=== PATIENT | female | born 1950 | race Caucasian/White ===

== ENCOUNTER 2018-07-08 09:23 | Day surgery (SDC) | payer BC, MEDICARE ==
[2018-07-06 09:34] VITALS: BMI 31.6
[2018-07-08 09:45] VITALS: RESP 16
[2018-07-08] MEDS ORDERED: ONDANSETRON 4 MG/2 ML VIAL IVP ONE (09:49)
[2018-07-08] MEDS ORDERED: LACTATED RINGERS 1,000 ML IV ONE (09:50)
[2018-07-08] MEDS ORDERED: LIDOCAINE 1% INJ 10MG/ML (20 ML MDV) ONE (11:29)
[2018-07-08] MEDS ORDERED: MIDAZOLAM 2 MG/2 ML VIAL ONE (11:29)
[2018-07-08] MEDS ORDERED: PROPOFOL 10 MG/ML 20 ML VIAL IV ONE (11:29)
--- NOTE | 2018-07-08 11:36 | P.GSHP ---
History of Present Illness H&P Date: 07/08/18 CHIEF COMPLAINT: Colon screen HISTORY OF PRESENT ILLNESS: The patient is a 68-year-old female who presents for colon screen. Lower endoscopy was offered for further evaluation and management. PAST MEDICAL HISTORY: Please see list. PAST SURGICAL HISTORY: Please see list. MEDICATIONS: Please see list. ALLERGIES: Please see list. SOCIAL HISTORY: No illicit drug use FAMILY HISTORY: No reports of Crohn disease or ulcerative colitis. REVIEW OF ORGAN SYSTEMS: CONSTITUTIONAL: No reports of fevers or chills. PHYSICAL EXAM: VITAL SIGNS: Stable GENERAL: Well-developed pleasant in no acute distress. HEENT: No scleral icterus. Extraocular movements grossly intact. Moist buccal mucosa. NECK: Supple without lymphadenopathy. CHEST: Unlabored respirations. Equal bilateral excursions. CARDIOVASCULAR: Regular rate and rhythm. Distal 2+ pulses. ABDOMEN: Soft, nontender, nondistended. MUSCULOSKELETAL: No clubbing, cyanosis, or edema. ASSESSMENT: 1. Colon screen. PLAN: 1. Recommend proceeding with a lower endoscopy Past Medical History Past Medical History: Hyperlipidemia, Hypertension, Thyroid Disorder Additional Past Medical History / Comment(s): IBS; Hemorrhoids; History of Any Multi-Drug Resistant Organisms: None Reported Past Surgical History: Adenoidectomy, Hysterectomy, Tonsillectomy Additional Past Surgical History / Comment(s): Colonoscopy Past Anesthesia/Blood Transfusion Reactions: Postoperative Nausea & Vomiting ( PONV) Past Psychological History: Anxiety Smoking Status: Never smoker Past Alcohol Use History: Occasional Past Drug Use History: None Reported - Past Family History Mother Family Medical History: No Reported History Medications and Allergies Home Medications Medication Instructions Recorded Confirmed Type ALPRAZolam [Xanax] 0.5 mg PO DAILY PRN 07/06/18 07/08/18 History Atenolol 25 mg PO BID 07/06/18 07/08/18 History Levothyroxine Sodium [Synthroid] 50 mcg PO DAILY 07/06/18 07/08/18 History Lisinopril [Zestril] 10 mg PO DAILY 07/06/18 07/08/18 History Pravastatin Sodium [Pravachol] 10 mg PO HS 07/06/18 07/08/18 History Timolol 0.5% Ophth Soln [Timoptic 1 drop BOTH EYES DAILY 07/06/18 07/08/18 History 0.5% Ophth Soln] Allergies Allergy/AdvReac Type Severity Reaction Status Date / Time No Known Allergies Allergy Verified 07/08/18 09:45 Surgical - Exam Vital Signs Temp Pulse Resp BP Pulse Ox 97.9 F 80 16 198/95 98 07/08/18 09:43 07/08/18 09:43 07/08/18 09:43 07/08/18 09:43 07/08/18 09:43
--- NOTE | 2018-07-08 11:57 | P.PCN ---
Date of Procedure: 07/08/18 Description of Procedure: PREOPERATIVE DIAGNOSIS: Colonoscopy screening. POSTOPERATIVE DIAGNOSIS: Colonoscopy screening. Intermittent sigmoid volvulus Internal and external, grade 4 hemorrhoids with complication OPERATION: Colonoscopy to the ascending colon SURGEON: Dena Schneider MD. ANESTHESIA: MAC. INDICATIONS: The patient is a 68-year-old female who presents for her first colonoscopy screening. Benefits and risks were described and informed consent was obtained. DESCRIPTION OF PROCEDURE: The patient had undergone Gatorade, MiraLAX and Dulcolax prep. She had been brought into the operating room and laid in the left lateral decubitus position. After adequate intravenous sedation, the rectum was examined with 2% lidocaine jelly. External hemorrhoids were encountered. The rectal tone was within normal limits. No lesions were palpated in the rectal vault. An Olympus colonoscope was advanced to the hepatic flexure. The prep was excellent with clear visualization of the mucosal folds. The scope was removed with visualization of each mucosal fold. No scattered diverticulosis was encountered. No colonic polyps were found. Evidence of focal colitis was found along the sigmoid colon and descending colon highly suggestive of intermittent sigmoid volvulus. Retroflexion of the scope demonstrated grade 4 internal hemorrhoids without active bleeding or inflammation. The colon was desufflated. The patient had tolerated the procedure well. Withdrawal time was over 6 minutes. FINDINGS: Internal hemorrhoids, grade 4 External prolapsed hemorrhoids, grade 4 No arteriovenous malformations. No adenomatous polyps. Evidence of focal colitis was found along the sigmoid colon and descending colon highly suggestive of intermittent sigmoid volvulus. RECOMMENDATIONS: 1. Will need barium enema to evaluate ascending colon and redundancy of sigmoid colon for risk of sigmoid volvulus 2. Repeat colonoscopy in 10 years, 2027 pending barium enema results Plan - Discharge Summary New Discharge Prescriptions: No Action Pravastatin Sodium [Pravachol] 10 mg PO HS Lisinopril [Zestril] 10 mg PO DAILY Levothyroxine Sodium [Synthroid] 50 mcg PO DAILY Timolol 0.5% Ophth Soln [Timoptic 0.5% Ophth Soln] 1 drop BOTH EYES DAILY Atenolol 25 mg PO BID ALPRAZolam [Xanax] 0.5 mg PO DAILY PRN PRN Reason: Anxiety Discharge Medication List ALPRAZolam [Xanax] 0.5 mg PO DAILY PRN 07/06/18 [History] Atenolol 25 mg PO BID 07/06/18 [History] Levothyroxine Sodium [Synthroid] 50 mcg PO DAILY 07/06/18 [History] Lisinopril [Zestril] 10 mg PO DAILY 07/06/18 [History] Pravastatin Sodium [Pravachol] 10 mg PO HS 07/06/18 [History] Timolol 0.5% Ophth Soln [Timoptic 0.5% Ophth Soln] 1 drop BOTH EYES DAILY [History] Follow up Appointment(s)/Referral(s): Dena Schneider MD [STAFF PHYSICIAN] - 07/19/18 Patient Instructions/Handouts: Hemorrhoids (DC), *Surgery [facility] - (Anesthesia) Endoscopy Discharge Instructions Discharge Disposition: HOME SELF-CARE
[2018-07-08 13:21] VITALS: BP 167/78; PULSE 57; TEMP 97.2
--- NOTE | 2018-07-08 14:41 | XR ---
EXAMINATION TYPE: XR KUB DATE OF EXAM: 07/08/2018 COMPARISON: NONE HISTORY: INCOMPLETE COLONOSCOPY TECHNIQUE: Single supine KUB image of the abdomen is obtained FINDINGS: Small bowel demonstrates no evidence for dilatation or air fluid levels. Gas and fecal material is seen in non-distended colon. No convincing evidence for pneumoperitoneum. No unusual calcifications. The lung bases are clear. The osseous structures are intact. IMPRESSION: 1. Given Extensive air within the transverse colon and right hemicolon barium enema could not be perf ormed at this time.
== END 2018-07-08 13:32 | disposition home or self-care (01) ==
LOC: ORWHC2ENDO 09:23
PROVIDERS: ATTEND Surgery Plastic and Reconstructive Surgery
DX: Z12.11 Encounter for screening for malignant neoplasm of colon (principal); I10 Essential (primary) hypertension; E78.5 Hyperlipidemia, unspecified; E07.9 Disorder of thyroid, unspecified; F41.9 Anxiety disorder, unspecified; K64.3 Fourth degree hemorrhoids; K64.4 Residual hemorrhoidal skin tags; K56.2 Volvulus; Z79.899 Other long term (current) drug therapy; K52.9 Noninfective gastroenteritis and colitis, unspecified; Z79.890 Hormone replacement therapy; F32.9 Major depressive disorder, single episode, unspecified
CPT/HCPCS: 74018; J2250; J2405; J2001; J2704; G0121

== ENCOUNTER → 2018-07-19 | Outpatient (CLI) | payer MEDICARE ==
--- NOTE | 2018-07-19 11:46 | FL ---
EXAMINATION TYPE: FL barium enema DATE OF EXAM: 07/19/2018 COMPARISON: Abdominal x-ray July 08, 2018. HISTORY: Incomplete colonoscopy TECHNIQUE: A double contrast barium enema study is performed. A total of 2 minutes 28 seconds of flu oroscopic time was utilized during procedure. 24 images are saved to PACS. FINDINGS: Inspector Raw Quartz view of the abdomen shows overall non-obstructive bowel gas pattern. Dextroconvex sc oliotic curvature centered in the mid lumbar spine is redemonstrated. There is successful filling of colon to the cecum. There is redundancy of the sigmoid as well as the transverse colon noted. No evidence of any mass or polyp, obstructing or constricting lesion througho ut the colon. Slightly suboptimal evaluation due to some mottled intracolonic fecal debris. No signif icant diverticular disease is noted. The appendix and terminal ileum were not refluxed. IMPRESSION: Successful filling to cecum without constricting mass or neoplasm.
== END ==
LOC: RADFLMAIN 08:45
PROVIDERS: ATTEND Surgery Plastic and Reconstructive Surgery
DX: K56.2 Volvulus (principal)
CPT/HCPCS: 74270

== ENCOUNTER → 2018-11-11 | Outpatient (CLI) | payer MEDICARE ==
[2018-11-11 13:34] LABS: HCT 48.3 % (34.0-46.0); HGB 15.7 gm/dL (11.4-16.0); MCH 30.6 pg (25.0-35.0); MCHC 32.5 g/dL (31.0-37.0); MCV 94.2 fL (80.0-100.0); Platelet Count 320 k/uL (150-450); RBC 5.12 m/uL (3.80-5.40); RDW 12.5 % (11.5-15.5); WBC 4.8 k/uL (3.8-10.6)
[2018-11-11 13:42] LABS: Albumin 4.2 g/dL (3.5-5.0); Calcium 9.9 mg/dL (8.4-10.2); Potassium 4.6 mmol/L (3.5-5.1); Total Bilirubin 0.6 mg/dL (0.2-1.3); Total Protein 6.9 g/dL (6.3-8.2)
== END | disposition home or self-care (01) ==
LOC: LABPAT 12:39
PROVIDERS: ATTEND Surgery Plastic and Reconstructive Surgery
DX: Z01.812 Encounter for preprocedural laboratory examination (principal)
CPT/HCPCS: 80053; 85027

== ENCOUNTER → 2018-12-06 | Outpatient (CLI) | payer MEDICARE ==
--- NOTE | 2018-12-06 22:01 | CT ---
EXAMINATION TYPE: CT abdomen pelvis w con DATE OF EXAM: 12/06/2018 HISTORY: abdominal pain X 2 years, sigmoid volvulus per order. CT DLP: 2645.8mGycm Automated Exposure Control for Dose Reduction was Utilized. CONTRAST: CT scan of the abdomen and pelvis is performed with IV Contrast, patient injected with 100 mL of Isov ue 300. COMPARISON: None. FINDINGS: LUNG BASES: No significant abnormality is appreciated. LIVER/GB: No significant abnormality is appreciated. PANCREAS: No significant abnormality is seen. SPLEEN: No significant abnormality is seen. ADRENALS: No significant abnormality is seen. KIDNEYS: There are symmetric cortical medullary uptake and excretion from both kidneys without hydron ephrosis bilaterally. Central parapelvic cysts are present in both kidneys.. BOWEL: Small hiatal hernia is present. Oral contrast reaches level of cecum. There is no suspicious s mall or large bowel dilatation. UTERUS/ADNEXA: Uterus is surgically absent or markedly atrophic LYMPH NODES: No greater than 1cm abdominal or pelvic lymph nodes are appreciated. OSSEOUS STRUCTURES: Dextroconvex scoliosis centered at L2 level is seen. There is advanced disc space narrowing with endplate sclerosis L2-L3 level. There is moderate to advanced disc space narrowing L4 -L5 level. There is moderate disc space narrowing L1-L2 level. There is multilevel facet arthropathy in the lower lumbar spine. OTHER: There is moderate-sized fat-containing right inguinal hernia and small fat-containing left in guinal hernia IMPRESSION: No significant acute finding is seen to account for patient's clinical symptoms of abdomi nal pain. No bowel obstruction or evidence of sigmoid volvulus.
== END | disposition home or self-care (01) ==
LOC: RADCTMAIN 14:58
PROVIDERS: ATTEND Surgery Plastic and Reconstructive Surgery
DX: K56.2 Volvulus (principal); Z88.8 Allergy status to other drugs, medicaments and biological substances
CPT/HCPCS: 82565; 84520; 74177; 36415; Q9967

== ENCOUNTER → 2018-12-27 | Outpatient (CLI) | payer MEDICARE ==
[2018-12-27 13:49] LABS: HCT 48.1 % (34.0-46.0); HGB 15.9 gm/dL (11.4-16.0); MCH 30.6 pg (25.0-35.0); MCHC 33.1 g/dL (31.0-37.0); MCV 92.6 fL (80.0-100.0); Mean Platelet Volume 7.8; Platelet Count 296 k/uL (150-450); RBC 5.19 m/uL (3.80-5.40); RDW 13.5 % (11.5-15.5); WBC 7.1 k/uL (3.8-10.6)
[2018-12-27 14:02] LABS: ALT 40 U/L (9-52); AST 35 U/L (14-36); Albumin 4.7 g/dL (3.5-5.0); Alkaline Phosphatase 75 U/L (38-126); Anion Gap 12 mmol/L; Blood Urea Nitrogen 36 mg/dL (7-17); Carbon Dioxide 22 mmol/L (22-30); Chloride 106 mmol/L (98-107); Glucose 99 mg/dL (74-99); Potassium 4.3 mmol/L (3.5-5.1); Sodium 140 mmol/L (137-145); Total Bilirubin 0.8 mg/dL (0.2-1.3); Total Protein 7.4 g/dL (6.3-8.2)
== END | disposition home or self-care (01) ==
LOC: LABWHC1 13:16
PROVIDERS: ATTEND Surgery Plastic and Reconstructive Surgery
DX: Z01.812 Encounter for preprocedural laboratory examination (principal)
CPT/HCPCS: 36415; 80053; 85027

== ENCOUNTER 2019-01-19 07:30 | Inpatient (IN) | payer MEDICARE ==
[~2019-01-19 07:30] MED LIST: LIDOCAINE 1% 20 ML VIAL (10MG/ML) FOR IV START INTRADERMA PRN
[2019-01-19] MEDS ORDERED: MIDAZOLAM 2 MG/2 ML VIAL ONE (10:10)
[2019-01-19] MEDS ORDERED: fentaNYL (PF) 50 MCG/ML 2 ML AMP ONE (10:10)
[2019-01-19] MEDS ORDERED: PROPOFOL 10 MG/ML 20 ML VIAL IV ONE (10:10)
[2019-01-19] MEDS: LACTATED RINGERS 1,000 ML IV SCH ×2 (12:07→14:30)
--- NOTE | 2019-01-19 12:27 | P.GSHP ---
History of Present Illness H&P Date: 01/19/19 CHIEF COMPLAINT: History of recurrent sigmoid volvulus HISTORY OF PRESENT ILLNESS: The patient is a 68-year-old female with long- standing history of chronic constipation including large bowel obstruction secondary to sigmoid volvulus. She has not completed a colonoscopy to exclude underlying neoplasm. Now she presents for completion colonoscopy and colon resection. PAST MEDICAL HISTORY: Please see list. PAST SURGICAL HISTORY: Please see list. MEDICATIONS: Please see list. ALLERGIES: Please see list. SOCIAL HISTORY: No illicit drug use FAMILY HISTORY: No reports of Crohn disease or ulcerative colitis. REVIEW OF ORGAN SYSTEMS: CONSTITUTIONAL: Denies any fever or chills. HEENT: Denies any trouble with nosebleeds. No difficulty swallowing. Has glaucoma. LYMPHATIC: The patient denies any lumps and bumps around the neck. ENDOCRINE: Has thyroid disorders. No blood sugar glucose intolerance. RESPIRATORY: Past history of bronchitis. Denies any troubles with breathing or dyspnea on exertion. CARDIOVASCULAR: Has past palpitations. No recent heart attacks. She saw her punch operator within the last 6 months. History of supraventricular tachycardia. GASTROINTESTINAL: Has chronic constipation including intermittent sigmoid volvulus with hemorrhoids and rectal bleeding. Has gastroesophageal reflux disease. Past history of C. diff colitis. Has postop nausea and vomiting. GENITOURINARY: Has increased urinary frequency. MUSCULOSKELETAL: Has back pain, stiffness, joint arthritis. NEUROLOGIC: Denies any numbness or tingling along the distal extremities. No seizure disorders or headaches. PSYCHIATRIC: Denies depression or suidical ideation. Has anxiety. HEMATOLOGIC: Denies any abnormal bleeding or bruising. PHYSICAL EXAM: VITAL SIGNS: Reviewed GENERAL: Well-developed pleasant in no acute distress. HEENT: No scleral icterus. Extraocular movements grossly intact. Moist buccal mucosa. NECK: Supple without lymphadenopathy. CHEST: Unlabored respirations. Equal bilateral excursions. CARDIOVASCULAR: Regular rate and rhythm. Distal 2+ pulses. ABDOMEN: Soft, nontender, nondistended. MUSCULOSKELETAL: No clubbing, cyanosis, or edema. NERUO: Cranial nerves 2-12 grossly intact. PSYCH: Alert and oriented to person place and time. SKIN: Good skin turgor. Well perfused. ASSESSMENT: 1. History of previous large bowel obstruction 2. Sigmoid volvulus 3. Previous history supraventricular tachycardia 4. Hypertensive heart disease with cardiomyopathy. PLAN: 1. Benefits and risks of surgical intervention partial colon resection reviewed in detail. Robotic-assisted approach was also described. 2. We'll proceed with lower endoscopy for her history of sigmoid volvulus and for exclusion of neoplasm 3. DVT prophylaxis. 4. Antibiotic prophylaxis. 5. Inpatient hospitalization for colon resection 6. Enhanced colon recovery advised Past Medical History Past Medical History: Eye Disorder, GERD/Reflux, Hyperlipidemia, Hypertension, Osteoarthritis (OA), Pneumonia, Supraventricular Tachycardia (SVT), Thyroid Disorder Additional Past Medical History / Comment(s): IBS; Hemorrhoids, occ migrianes, "twisted bowel", LBBB, PVC's, varicose veins, bronchitis, glaucoma, c-diff approx 2 yrs ago History of Any Multi-Drug Resistant Organisms: None Reported Past Surgical History: Adenoidectomy, Cardiac Ablation, Hysterectomy, Tonsillectomy Additional Past Surgical History / Comment(s): Colonoscopy, Past Anesthesia/Blood Transfusion Reactions: Postoperative Nausea & Vomiting (PONV) Additional Past Anesthesia/Blood Transfusion Reaction / Comment(s): hx of autologeous blood transfusion-no complications Smoking Status: Never smoker - Past Family History Mother Family Medical History: Cancer Additional Family Medical History / Comment(s): skin Medications and Allergies Home Medications Medication Instructions Recorded Confirmed Type ALPRAZolam [Xanax] 0.5 mg PO DAILY PRN 07/06/18 01/19/19 History Atenolol 25 mg PO BID 07/06/18 01/19/19 History Levothyroxine Sodium [Synthroid] 50 mcg PO QAM 07/06/18 01/19/19 History Lisinopril [Zestril] 10 mg PO QAM 07/06/18 01/19/19 History Pravastatin Sodium [Pravachol] 10 mg PO HS 07/06/18 01/19/19 History Timolol 0.5% Ophth Soln [Timoptic 1 drop BOTH EYES DAILY 07/06/18 01/19/19 History 0.5% Ophth Soln] Ibuprofen 200 mg PO Q4H PRN 11/10/18 01/19/19 History Acetaminophen [Tylenol Extra 500 - 1,000 mg PO Q6H PRN 01/17/19 01/19/19 History Strength] Allergies Allergy/AdvReac Type Severity Reaction Status Date / Time buspirone [From BuSpar] Allergy Unknown Verified 01/19/19 15:06 sertraline AdvReac passed out Verified 01/19/19 15:06 Surgical - Exam Vital Signs Temp Pulse Resp BP Pulse Ox 99.3 F 73 16 198/97 97 01/19/19 11:45 01/19/19 11:45 01/19/19 11:45 01/19/19 11:45 01/19/19 11:45
[2019-01-19] MEDS ORDERED: NALOXONE 0.4 MG/ML 1 ML VIAL IV PRN (12:28)
--- NOTE | 2019-01-19 12:28 | P.PCN ---
Date of Procedure: 01/19/19 Description of Procedure: PREOPERATIVE DIAGNOSIS: History of sigmoid volvulus with intermittent large bowel obstruction Colonoscopy screening Family history of colon cancer POSTOPERATIVE DIAGNOSIS: History of sigmoid volvulus with intermittent large bowel obstruction Colonoscopy screening Family history of colon cancer Stage IV internal and external hemorrhoids OPERATION: Colonoscopy to the ascending colon SURGEON: Dena Schneider MD. ANESTHESIA: MAC. INDICATIONS: The patient is a 68-year-old female who presents for with history of sigmoid volvulus and need for colonoscopy screening for malignancy. Benefits and risks were described and informed consent was obtained. DESCRIPTION OF PROCEDURE: The patient had undergone Suprep. She had been brought into the operating room and laid in the left lateral decubitus position. After adequate intravenous sedation, the rectum was examined with 2% lidocaine jelly. Large stage 4 external and internal hemorrhoids were encountered. The rectal tone was within normal limits. No lesions were palpated in the rectal vault. An Olympus colonoscope was advanced to the ascending colon were clearly viewed. The prep was excellent with clear visualization of the mucosal folds. The scope was removed with visualization of each mucosal fold. No scattered diverticulosis was encountered. No colonic polyps were found. No evidence of focal colitis was found. Retroflexion of the scope demonstrated grade 4 internal hemorrhoids without active bleeding or inflammation. The colon was desufflated. The patient had tolerated the procedure well. Withdrawal time was over 6 minutes. FINDINGS: Aronchick preparation quality scale 1 (1-5) Internal hemorrhoids, grade 4 External prolapsed hemorrhoids, grade 4 No diverticulosis. No arteriovenous malformations. No adenomatous polyps. No focal colitis. RECOMMENDATIONS: Lower endoscopy in 5 years2023 Inpatient admission for colon resection for volvulus
[2019-01-19] MEDS ORDERED: Antibiotics per Pharmacy 1 EACH MISC MISCELLANE PRN (12:29)
[2019-01-19] MEDS ORDERED: ALVIMOPAN 12 MG CAPSULE PO ONE (12:29)
[2019-01-19] MEDS ORDERED: metroNIDAZOLE-NS PMX 500 MG in SALINE 1 100ML.BAG IVPB ONE (12:45)
[2019-01-19] MEDS ORDERED: ceFAZolin IN SWFI 2 GM/20 ML SYRINGE IVP ONE (12:45)
[2019-01-19] MEDS: metroNIDAZOLE 500 MG TAB PO SCH ×3 (15:42→23:09)
[2019-01-19] MEDS: D5-0.45% NACL WITH KCL 20MEQ/L 1,000 ML IV SCH ×2 (15:43→23:06)
[2019-01-19 16:14] LABS: Basophils % (A) 1 %; Eosinophils # (A) 0.1 k/uL (0-0.7); Eosinophils % (A) 2 %; HCT 45.1 % (34.0-46.0); HGB 14.9 gm/dL (11.4-16.0); Lymphocytes # (A) 1.7 k/uL (1.0-4.8); Lymphocytes % (A) 31 %; MCH 30.3 pg (25.0-35.0); MCHC 33.1 g/dL (31.0-37.0); MCV 91.5 fL (80.0-100.0); Monocytes # (A) 0.3 k/uL (0-1.0); Monocytes % (A) 6 %; Neutrophils # (A) 3.2 k/uL (1.3-7.7); Neutrophils % (A) 59 %; Platelet Count 254 k/uL (150-450); RBC 4.92 m/uL (3.80-5.40); RDW 13.4 % (11.5-15.5); WBC 5.5 k/uL (3.8-10.6)
[2019-01-19 16:21] VITALS: BMI 31.2
[2019-01-19 16:34] LABS: ALT 17 U/L (9-52); AST 18 U/L (14-36); Albumin 4.1 g/dL (3.5-5.0); Alkaline Phosphatase 69 U/L (38-126); Anion Gap 6 mmol/L; Blood Urea Nitrogen 10 mg/dL (7-17); Calcium 9.7 mg/dL (8.4-10.2); Carbon Dioxide 28 mmol/L (22-30); Chloride 106 mmol/L (98-107); Glucose 125 mg/dL (74-99); Potassium 3.9 mmol/L (3.5-5.1); Sodium 140 mmol/L (137-145); Total Bilirubin 0.8 mg/dL (0.2-1.3); Total Protein 6.7 g/dL (6.3-8.2)
[2019-01-19] MEDS: NEOMYCIN 500 MG TAB PO SCH ×3 (17:07→23:05)
[2019-01-19 17:30] LABS: Glucose,Whole Blood 112 mg/dL (75-99)
[2019-01-19] MEDS: ATENOLOL 25 MG TAB PO SCH (19:54)
[2019-01-19] MEDS: ONDANSETRON 4 MG/2 ML VIAL IVP PRN (19:54)
[2019-01-19] MEDS: FAMOTIDINE 20 MG TAB PO SCH (19:54)
--- NOTE | 2019-01-20 06:29 | P.PN ---
Progress Note - Text Progress Note Date: 01/19/19 Patient seen and evaluated with colonoscopy findings reviewed. Patient reports moderate severe right lower quadrant abdominal pain ongoing for several months. She had previous diagnostic studies demonstrating moderate distention along the cecum. She is at risk for cecal bascule. I discussed with both the patient and with her right lower quadrant abdominal pain, right hemicolectomy may be performed versus sigmoid colectomy pending intraoperative findings. All questions were addressed. Both patient and family agreed with the surgical plan including level of care.
[2019-01-20 07:43] LABS: Basophils % (A) 1 %; Eosinophils # (A) 0.1 k/uL (0-0.7); Eosinophils % (A) 2 %; HCT 43.8 % (34.0-46.0); HGB 14.5 gm/dL (11.4-16.0); Lymphocytes # (A) 1.1 k/uL (1.0-4.8); Lymphocytes % (A) 22 %; MCH 30.5 pg (25.0-35.0); MCHC 33.2 g/dL (31.0-37.0); Mean Platelet Volume 7.4; Monocytes # (A) 0.4 k/uL (0-1.0); Monocytes % (A) 7 %; Neutrophils # (A) 3.3 k/uL (1.3-7.7); Neutrophils % (A) 67 %; Platelet Count 255 k/uL (150-450); RBC 4.76 m/uL (3.80-5.40); RDW 12.8 % (11.5-15.5); WBC 4.9 k/uL (3.8-10.6)
[2019-01-20 08:02] LABS: ALT 20 U/L (9-52); AST 20 U/L (14-36); Albumin 3.8 g/dL (3.5-5.0); Alkaline Phosphatase 60 U/L (38-126); Anion Gap 5 mmol/L; Blood Urea Nitrogen 9 mg/dL (7-17); Calcium 9.2 mg/dL (8.4-10.2); Carbon Dioxide 25 mmol/L (22-30); Chloride 111 mmol/L (98-107); Glucose 109 mg/dL (74-99); Potassium 4.6 mmol/L (3.5-5.1); Sodium 141 mmol/L (137-145); Total Bilirubin 0.8 mg/dL (0.2-1.3); Total Protein 6.3 g/dL (6.3-8.2)
[2019-01-20] MEDS: ATENOLOL 25 MG TAB PO SCH ×2 (08:19→22:12)
[2019-01-20] MEDS: ENOXAPARIN 40 MG/0.4 ML SYRINGE SQ SCH (09:34)
[2019-01-20] MEDS: TIMOLOL 0.5% OPHTH DROPS 5 ML BTL BOTH EYES SCH (09:45)
[2019-01-20] MEDS: FAMOTIDINE 20 MG TAB PO SCH (09:45)
[2019-01-20] MEDS: LISINOPRIL 10 MG TAB PO SCH (09:45)
[2019-01-20] MEDS ORDERED: ALVIMOPAN 12 MG CAPSULE PO ONE (10:00)
--- NOTE | 2019-01-20 11:06 | P.HPADDEND ---
H&P Addendum H&P Addendum Date: 01/20/19 Patient comes in and reports having mushy stool this morning. Separately she reports prolonged right lower quadrant abdominal pain which has improved today. We'll proceed with partial colon resection likely right hemicolectomy described. Benefits and risks reviewed.
[2019-01-20] MEDS ORDERED: IV FLUID CONTINUATION 850 ML IV ONE (11:51)
[2019-01-20] MEDS ORDERED: SCOPOLAMINE 1.5MG/72HR PATCH TRANSDERM ONE (12:05)
[2019-01-20] MEDS ORDERED: LACTATED RINGERS 1,000 ML IV ONE ×3 (12:06→15:51)
[2019-01-20] MEDS ORDERED: MIDAZOLAM (PF) 2 MG/2 ML VIAL IV ONE (12:30)
[2019-01-20] MEDS ORDERED: ONDANSETRON 4 MG/2 ML VIAL IVP ONE (12:43)
[2019-01-20] MEDS ORDERED: ROPIVACAINE 400 MG, fentaNYL (PF) 625 MCG in SODIUM CHLORIDE 0.9% 158 ML EPIDURAL PRN (13:09)
[2019-01-20] MEDS ORDERED: NALOXONE 0.4 MG/ML 1 ML VIAL IV PRN (13:09)
[2019-01-20] MEDS ORDERED: HYDROmorphone 0.5 MG/0.5 ML SYRINGE IVP PRN (13:41)
[2019-01-20] MEDS ORDERED: ONDANSETRON 4 MG/2 ML VIAL IVP PRN (13:41)
[2019-01-20] MEDS ORDERED: MIDAZOLAM 2 MG/2 ML VIAL ONE (14:26)
[2019-01-20] MEDS ORDERED: PROPOFOL 10 MG/ML 20 ML VIAL IV ONE (14:26)
[2019-01-20] MEDS ORDERED: ePHEDrine SULFATE/0.9% NACL/PF 50 MG/5 ML SYRINGE IV ONE (14:26)
[2019-01-20] MEDS ORDERED: NEOSTIGMINE 1 MG/ML 10 ML VIAL ONE (14:26)
[2019-01-20] MEDS ORDERED: ROCURONIUM BROMIDE 10 MG/ML 10 ML VIAL IV ONE (14:26)
[2019-01-20] MEDS ORDERED: HYDROmorphone (PF) 1 MG/ML ONE (14:26)
[2019-01-20] MEDS ORDERED: LIDOCAINE 1% INJ 10MG/ML (20 ML MDV) ONE (14:26)
[2019-01-20] MEDS ORDERED: GLYCOPYRROLATE 0.2 MG/ML 2 ML VIAL ONE (14:26)
[2019-01-20] MEDS ORDERED: fentaNYL (PF) 50 MCG/ML 2 ML AMP ONE (14:26)
[2019-01-20] MEDS ORDERED: BUPIVACAINE (PF) 0.5% 30 ML VIAL SQ ONE ×2 (14:28→15:03)
[2019-01-20] MEDS: D5-0.45% NACL WITH KCL 20MEQ/L 1,000 ML IV SCH ×2 (16:58→22:13)
[2019-01-20] MEDS: LACTATED RINGERS 1,000 ML IV SCH (16:59)
[2019-01-20] MEDS ORDERED: HYDROmorphone 1 MG/ML 1 ML SYRINGE IVP PRN (18:14)
[2019-01-20] MEDS ORDERED: METOCLOPRAMIDE 5 MG/ML 2 ML VIAL IVP PRN (18:14)
[2019-01-20] MEDS ORDERED: BENZOCAINE/MENTHOL LOZENG 1 EACH LOZENGE MUCOUS MEM PRN (18:14)
--- NOTE | 2019-01-20 18:29 | P.OP ---
Date of Procedure: 01/20/19 Description of Procedure: SURGEON: TITI SCHNEIDER MD Preoperative Diagnosis: 1. Intermittent colonic volvulus with large bowel obstruction 2. Right lower quadrant abdominal pain. 3. Chronic constipation 4. Hypertensive heart disease 5. Supraventricalr tachycardia 6. Gastroesophageal reflux disease 7. Glaucoma 8. Hypothyroidism 9. Obesity due to excess calories, BMI 31.6 Postoperative Diagnosis: 1. Intermittent colonic volvulus with large bowel obstruction 2. Right lower quadrant abdominal pain. 3. Chronic constipation 4. Hypertensive heart disease 5. Supraventricalr tachycardia 6. Gastroesophageal reflux disease 7. Glaucoma 8. Hypothyroidism 9. Obesity due to excess calories, BMI 31.6 Procedure(s) Performed: 1. Robot-assisted daVinci Xi laparoscopic extended right hemicolectomy Anesthesia: GETA, local, epidural Surgeon: Titi Schneider Estimated Blood Loss (ml): 20 Pathology: other (Right colon) Condition: stable SPECIMENS REMOVED: terminal ileum and right colon en bloc. COMPLICATIONS: None. Disposition: floor Operative Findings: 1. Moderately redundant right/transverse colon, 13 inches resected. 2. Active cecal volvulus with intermittent large bowel obstruction identified 3. No ischemic changes of the colon 4. Mesenteric defect obliterated by abdominal fat 5. Primary side to side anastomosis of ileum to transverse colon 6. Total of 4 staple load 60 mm, 2 blue staple loads and 2 white staple loads 7. Console time 131 minutes INDICATIONS: The patient is a 68-year-old female who presents with intermittent large bowel obstruction including right lower quadrant pain. Surgical intervention with colon resection was described in detail. Benefits and risks, including infection, open surgery possibility for additional surgery was discussed at length. Informed consent was obtained. All questions of the patient and family were answered. DESCRIPTION: Earlier the patient had undergone a bowel prep using the enhanced colon recovery program. An epidural was placed by anesthesia. The patient was transferred to the operating room and placed in supine position. After general anesthetic, a tomas catheter was placed. The abdomen was then prepped and draped in standard sterile fashion as Ioban was placed along the abdomen to minimize any contamination of skin binh. After a timeout protocol was performed, attention was then brought to the left upper quadrant whereby a 0 degree 5 mm laparoscopic trocar entry was performed. The abdominal cavity was entered and insufflated to 15 mmHg pressure, which was tolerated well. Diagnostic laparoscopy demonstrated no injury to bowel, viscera or mesentery. The liver was unremarkable. No inguinal hernias were identified. Next trochars were placed obliquely from the midline to the left upper quadrant. An robotic 8-mm trocar to the left of the midline of the lower abdomen just above the pubis. A 12 mm port was placed along the left of the umbilicus and another 8-mm port along the epigastrium. Ports were placed 9 cm apart from each other including 15-20 cm away from the target anatomy of the right pelvis. The 5-mm port was exchanged for a 12 mm robotic port. The patient was then placed right side up 6. The robotic da Salvatore XI system was primed and docked from the right side of the patient. Using atraumatic graspers and vessel sealer, the robotic system was docked and primed as described. Instruments were interchanged by the miller head assistant wet process including scissors, needle hammer driver, robotic stapler and vessel sealer. Next, attention was brought to identify the cecum. A stay suture using 0 silk was placed along the anterior serosa of the along the terminal ileum. The terminal ileum and ascending colon mesentery was mobilized using a vessel sealer whereby the colon was marked and tagged. Moderately redundant right colon was identified. Active cecal volvulus with intermittent large bowel obstruction was found with dilated cecum. Highly redundant right colon including hepatic flexure was confirmed. No ischemic changes of the colon was found. Using robot stapler 60 mm white load, the distal ileum was divided 8 centimeters proximal to the ileocecal valve. The mesentery of the ascending colon was mobilized towards the midline using a vessel sealer. Secondary to the highly redundant hepatic flexure and ascending colon, the right colon was mobilized to the mid transverse colon and prepared for resection. The colon was divided using 60 mm blue loads. The rest of the colon mesentery was mobilized using vessel sealer including using blunt dissection. The ascending colon was mobilized from proximal to distal with the meeting point of the hepatic flexure. The vascular pedicle of the ileocolic artery were controlled using vessel sealer. The mid transverse colon and distal ileum was brought in a side to side antiperistaltic anastomotic fashion after placing interrupted sutures along the proposed janie-lumen using 3-0 silk. A colotomy and enterotomy was prepared along both limbs along the antimesenteric border. Next, 60 mm white stapler loads were fired to create the janie-lumen. The janie-lumen was reapproximated using 3-0 silk followed by 60 mm blue load for closure of the enterostomy. The mesenteric defect was obliterated by fat. All needles were removed from the abdominal cavity. The robot was undocked. I re-scrubbed into the case. Via the 12 mm port of the left upper quadrant, the right colon was removed after widening the skin incision to 3-cm. All sponges were removed from the abdominal cavity. As the specimen was extremely long and filled with gas, the specimen was drained externally out of the abdomen with some contamination along the skin incision. The fascial defect was oversewn using 0 Vicryl and Felipe Castillo. Next all pneumoperitoneum was evacuated from the abdominal cavity. The 8-mm trocar sites were reapproximated using 4-0 Monocryl in an interrupted subcuticular fashion. Local anesthetic was infiltrated to all wounds for postop analgesia. All incisions were also cleansed with diluted hydrogen peroxide. An OptiFoam surgical dressing was placed over the left upper quadrant incision of the colon extraction site. The specimen was measured externally and confirmed 13 inches. Liquid was applied to the rest of the skin incisions. The patient had tolerated the procedure well. The patient was extubated successfully. Intraoperative photos were reviewed with the patient's family who were overall pleased with the level of care. The patient was transferred to the postanesthesia care unit in stable condition.
--- NOTE | 2019-01-20 19:07 | P.DS ---
Providers Date of admission: 01/19/19 11:33 Expected date of discharge: 01/21/19 Attending physician: Dena Schneider Primary care physician: Terry Ortega Plan - Discharge Summary Discharge Rx Participant: Yes New Discharge Prescriptions: New Ibuprofen [Motrin] 600 mg PO Q8HR PRN #20 tab PRN Reason: Pain HYDROcodone/APAP 5-325MG [[place] 5-325] 1 tab PO Q4HR PRN 3 Days #18 tab PRN Reason: Pain Continue Lisinopril [Zestril] 10 mg PO QAM Levothyroxine Sodium [Synthroid] 50 mcg PO QAM Timolol 0.5% Ophth Soln [Timoptic 0.5% Ophth Soln] 1 drop BOTH EYES DAILY Atenolol 25 mg PO BID Ibuprofen 200 mg PO Q4H PRN PRN Reason: Pain Acetaminophen [Tylenol Extra Strength] 500 - 1,000 mg PO Q6H PRN PRN Reason: Pain Discontinued Pravastatin Sodium [Pravachol] 10 mg PO HS ALPRAZolam [Xanax] 0.5 mg PO DAILY PRN PRN Reason: Anxiety Discharge Medication List Atenolol 25 mg PO BID 07/06/18 [History] Levothyroxine Sodium [Synthroid] 50 mcg PO QAM 07/06/18 [History] Lisinopril [Zestril] 10 mg PO QAM 07/06/18 [History] Timolol 0.5% Ophth Soln [Timoptic 0.5% Ophth Soln] 1 drop BOTH EYES DAILY 07/06/18 [History] Ibuprofen 200 mg PO Q4H PRN 11/10/18 [History] Acetaminophen [Tylenol Extra Strength] 500 - 1,000 mg PO Q6H PRN 01/17/19 [History] HYDROcodone/APAP 5-325MG [[place] 5-325] 1 tab PO Q4HR PRN 3 Days #18 tab 01/20/19 [Rx] Ibuprofen [Motrin] 600 mg PO Q8HR PRN #20 tab 01/20/19 [Rx] Follow up Appointment(s)/Referral(s): Dena Schneider MD [STAFF PHYSICIAN] - 01/25/19 () Patient Instructions/Handouts: *[facility] - (Anesthesia) Endoscopy Discharge Instructions, Hemorrhoids (DC), Colectomy (DC), Laparoscopic Bowel Resection (DC), Colectomy Diet (GEN), Colonoscopy (DC) Activity/Diet/Wound Care/Special Instructions: NO Lifting over 4 pounds for 4 weeks to February 20. December shower. No bath tub soaks. Do not remove dressing. Liquid diet including protein shakes. Blood in stools is normal. Discharge Disposition: HOME SELF-CARE
[2019-01-20] MEDS ORDERED: TAMSULOSIN 0.4 MG CAP.ER.24H PO STA (19:11)
[2019-01-20] MEDS: TAMSULOSIN 0.4 MG CAP.ER.24H PO STA ×2 (22:12→22:14)
[2019-01-20] MEDS: FAMOTIDINE 20 MG/2 ML VIAL IV SCH (22:12)
[2019-01-20] MEDS: metroNIDAZOLE-NS PMX 500 MG in SALINE 1 100ML.BAG IVPB SCH (23:03)
[2019-01-20] MEDS: ceFAZolin IN SWFI 2 GM/20 ML SYRINGE IVP SCH (23:03)
[2019-01-21] MEDS: metroNIDAZOLE-NS PMX 500 MG in SALINE 1 100ML.BAG IVPB SCH ×2 (05:15→12:23)
[2019-01-21] MEDS: D5-0.45% NACL WITH KCL 20MEQ/L 1,000 ML IV SCH (05:18)
--- NOTE | 2019-01-21 07:12 | P.PN ---
Progress Note - Text Progress Note Date: 01/21/19 Pt w/o complaints. Pain controlled. Epidural @ 8 ml/hr. No weakness or LE paresthesia. Epidural site clean and dry. POD #1 s/p Robotic colon resection - Encourage OOB and incentive spirometer - continue epidural
[2019-01-21] MEDS: LISINOPRIL 10 MG TAB PO SCH (08:13)
[2019-01-21] MEDS: ATENOLOL 25 MG TAB PO SCH (08:13)
[2019-01-21] MEDS: FAMOTIDINE 20 MG/2 ML VIAL IV SCH (08:13)
[2019-01-21] MEDS ORDERED: TAMSULOSIN 0.4 MG CAP.ER.24H PO SCH (08:30)
[2019-01-21] MEDS ORDERED: ALVIMOPAN 12 MG CAPSULE PO SCH (09:00)
[2019-01-21] MEDS: ENOXAPARIN 40 MG/0.4 ML SYRINGE SQ SCH (09:40)
[2019-01-21] MEDS: ceFAZolin IN SWFI 2 GM/20 ML SYRINGE IVP SCH ×2 (10:29→16:28)
--- NOTE | 2019-01-21 11:35 | P.PN ---
Progress Note - Text Progress Note Date: 01/21/19 The patient has some complaints of incisional pain. She states she is tired. She feels that she does not want to go home today. On exam her vital signs are stable. Her abdomen soft. Incision sites are clean and intact. Patient will be charge home in a.m.
[2019-01-21] MEDS: ONDANSETRON 4 MG/2 ML VIAL IVP PRN (12:24)
[2019-01-21 15:03] VITALS: BP 132/70; PULSE 67; RESP 17; TEMP 98.3
--- NOTE | 2019-01-21 15:07 | P.DS ---
Providers Date of admission: 01/19/19 11:33 Attending physician: Dena Schneider Primary care physician: [facility] Course: Nursing notified that patient had done well after epidural removal. Patient clinically stable for discharge. Plan - Discharge Summary Discharge Rx Participant: Yes New Discharge Prescriptions: New Ibuprofen [Motrin] 600 mg PO Q8HR PRN #20 tab PRN Reason: Pain HYDROcodone/APAP 5-325MG [[place] 5-325] 1 tab PO Q4HR PRN 3 Days #18 tab PRN Reason: Pain Continue Lisinopril [Zestril] 10 mg PO QAM Levothyroxine Sodium [Synthroid] 50 mcg PO QAM Timolol 0.5% Ophth Soln [Tim[place] 0.5% Ophth Soln] 1 drop BOTH EYES DAILY Atenolol 25 mg PO BID Ibuprofen 200 mg PO Q4H PRN PRN Reason: Pain Acetaminophen [Tylenol Extra Strength] 500 - 1,000 mg PO Q6H PRN PRN Reason: Pain Discontinued Pravastatin Sodium [Pravachol] 10 mg PO HS ALPRAZolam [Xanax] 0.5 mg PO DAILY PRN PRN Reason: Anxiety Discharge Medication List Atenolol 25 mg PO BID 07/06/18 [History] Levothyroxine Sodium [Synthroid] 50 mcg PO QAM 07/06/18 [History] Lisinopril [Zestril] 10 mg PO QAM 07/06/18 [History] Timolol 0.5% Ophth Soln [[place] 0.5% Ophth Soln] 1 drop BOTH EYES DAILY 07/06/18 [History] Ibuprofen 200 mg PO Q4H PRN 11/10/18 [History] Acetaminophen [Tylenol Extra Strength] 500 - 1,000 mg PO Q6H PRN 01/17/19 [History] HYDROcodone/APAP 5-325MG [[place] 5-325] 1 tab PO Q4HR PRN 3 Days #18 tab 01/20/19 [Rx] Ibuprofen [Motrin] 600 mg PO Q8HR PRN #20 tab 01/20/19 [Rx] Follow up Appointment(s)/Referral(s): Dena Schneider MD [STAFF PHYSICIAN] - 01/25/19 () Patient Instructions/Handouts: *[facility] - (Anesthesia) Endoscopy Discharge Instructions, Hemorrhoids (DC), Colectomy (DC), Laparoscopic Bowel Resection (DC), Colectomy Diet (GEN), Colonoscopy (DC) Activity/Diet/Wound Care/Special Instructions: NO Lifting over 4 pounds for 4 weeks to February 20. December shower. No bath tub soaks. Do not remove dressing. Liquid diet including protein shakes. Blood in stools is normal. Discharge Disposition: HOME SELF-CARE
[2019-01-21] MEDS: TIMOLOL 0.5% OPHTH DROPS 5 ML BTL BOTH EYES SCH (16:27)
[2019-01-21] MEDS: LACTATED RINGERS 1,000 ML IV SCH (16:28)
== END 2019-01-21 17:22 | disposition home or self-care (01) | DRG 330 ==
LOC: EDSTATUS 07:30 → 2ORMAIN 11:33 → 4SSUR 14:16
PROVIDERS: ADMIT Surgery Plastic and Reconstructive Surgery; ATTEND Surgery Plastic and Reconstructive Surgery
PROC: 0DJD8ZZ Inspection of Lower Intestinal Tract, Via Natural or Artificial Opening Endoscopic (ICD-10-PCS; principal; 2019-01-19 12:30)
PROC: 8E0W4CZ Robotic Assisted Procedure of Trunk Region, Percutaneous Endoscopic Approach (ICD-10-PCS; principal; 2019-01-19 12:30)
PROC: 0DBF0ZZ Excision of Right Large Intestine, Open Approach (ICD-10-PCS; 2019-01-20)
DX: K56.2 Volvulus (principal); I42.9 Cardiomyopathy, unspecified; Q43.8 Other specified congenital malformations of intestine; E03.9 Hypothyroidism, unspecified; E66.09 Other obesity due to excess calories; E78.5 Hyperlipidemia, unspecified; H40.9 Unspecified glaucoma; I11.9 Hypertensive heart disease without heart failure; K21.9 Gastro-esophageal reflux disease without esophagitis; K58.9 Irritable bowel syndrome, unspecified; K64.4 Residual hemorrhoidal skin tags; K64.8 Other hemorrhoids; Z68.31 Body mass index [BMI] 31.0-31.9, adult; Z79.890 Hormone replacement therapy; Z79.899 Other long term (current) drug therapy; Z80.0 Family history of malignant neoplasm of digestive organs; Z90.710 Acquired absence of both cervix and uterus; E07.9 Disorder of thyroid, unspecified; Z88.8 Allergy status to other drugs, medicaments and biological substances; R00.0 Tachycardia, unspecified
CPT/HCPCS: 80053; 83735; 85025; 86850; 86900; 86901; 88307

== ENCOUNTER 2021-02-07 10:49 | Day surgery (SDC) | payer MEDICARE ==
[2021-02-06 09:33] VITALS: BMI 31.6
[~2021-02-07 10:49] MED LIST changes: +LACTATED RINGERS 1,000 ML IV SCH; -LIDOCAINE 1% 20 ML VIAL (10MG/ML) FOR IV START INTRADERMA PRN
[2021-02-07 11:20] VITALS: TEMP 99.7
[2021-02-07] MEDS ORDERED: ONDANSETRON 4 MG/2 ML VIAL ONE (11:23)
[2021-02-07] MEDS ORDERED: LIDOCAINE 1% (10MG/ML) FOR IV START INTRADERMA ONE (11:26)
[2021-02-07] MEDS ORDERED: ONDANSETRON 4 MG/2 ML VIAL IVP ONE (11:26)
[2021-02-07] MEDS ORDERED: PROPOFOL 10 MG/ML 20 ML VIAL IV ONE (11:48)
[2021-02-07] MEDS ORDERED: MIDAZOLAM 2 MG/2 ML VIAL ONE (11:48)
--- NOTE | 2021-02-07 12:07 | P.PCN ---
Date of Procedure: 02/07/21 Procedure(s) Performed: BRIEF HISTORY: Patient is a 70-year-old pleasant [] scheduled for an elective colonoscopy as a part of evaluation of positive cologuard. PROCEDURE PERFORMED: Colonoscopy. PREOPERATIVE DIAGNOSIS: Positive cologuard. IV sedation per Anesthesia. PROCEDURE: After informed consent was obtained, the patient, was brought into the endoscopy unit. IV sedation was administered by Anesthesia under continuous monitoring. Digital rectal examination was normal. Initially the Olympus CF-160 flexible video colonoscope was then inserted in the rectum, gradually advanced into the right colon without any difficulty and the ileocolic anastomosis was visualized and appeared normal. In the transverse colon there was a 4 mm sessile polyp removed by cold biopsy. Rest of the\, transverse colon, descending colon, sigmoid colon, and rectum appeared normal. Retroflexion was performed in the rectum and grade 2 internal hemorrhoids were seen. The patient tolerated the procedure well. IMPRESSION: 4 mm sessile transverse colon polyps is post removal by cold biopsy Grade 2 internal hemorrhoids RECOMMENDATIONS: Findings of this examination were discussed with the patient as well as a family. She was advised to follow with the biopsies are spread the biopsy shows an adenoma she can have a repeat colonoscopy in 5 years.
[2021-02-07 12:35] VITALS: BP 167/90; PULSE 67; RESP 16
== END 2021-02-07 13:05 | disposition home or self-care (01) ==
LOC: ORWHC2ENDO 10:49
PROVIDERS: ATTEND Internal Medicine Gastroenterology
DX: K64.8 Other hemorrhoids (principal); D12.3 Benign neoplasm of transverse colon; Z79.899 Other long term (current) drug therapy; I47.1 Supraventricular tachycardia; I44.7 Left bundle-branch block, unspecified; K21.9 Gastro-esophageal reflux disease without esophagitis; I10 Essential (primary) hypertension; E78.5 Hyperlipidemia, unspecified
CPT/HCPCS: 88305; 45380; J2250; J2405; J2704

== ENCOUNTER → 2021-07-10 | Outpatient (CLI) | payer MEDICARE ==
--- NOTE | 2021-07-10 15:58 | CT ---
EXAMINATION TYPE: CT abdomen pelvis wo con DATE OF EXAM: 07/10/2021 HISTORY: right flank and RLQ pain x2 months CT DLP: 916 mGycm. Automated Exposure Control for Dose Reduction was Utilized. TECHNIQUE: CT scan of the abdomen and pelvis is performed without oral or IV contrast. COMPARISON: Prior CT December 06, 2018 FINDINGS: Within the limitations of a non-contrast study, the following observations are made. LUNG BASES: No significant abnormality is appreciated. LIVER/GB: No significant abnormality is appreciated. PANCREAS: No significant abnormality is seen. SPLEEN: No significant abnormality is seen. ADRENALS: No significant abnormality is seen. KIDNEYS: Prominent central parapelvic cyst left kidney mimic hydronephrosis similar to prior. No babs l calculi identified bilaterally. There are some parapelvic cysts centrally in the right kidney redem onstrated less prominent than the opposite left kidney. No hydroureter identified bilaterally. BOWEL: Small sized hiatal hernia is redemonstrated. Surgical changes in the region of the cecum are n ow present. There is no suspicious small or large bowel dilatation. Slightly suboptimal evaluation of bowel without enteric contrast. GENITAL ORGANS: Uterus surgically absent similar to the prior. LYMPH NODES: No greater than 1cm abdominal or pelvic lymph nodes are appreciated. OSSEOUS STRUCTURES: Persistent dextroconvex scoliosis centered at L2 level. Persistent multilevel mod erate disc space narrowing and spurring with relative sparing of L3-L4 and L5-S1 levels. Multilevel f acet arthropathy in the mid to lower lumbar spine redemonstrated. OTHER: Small sized fat-containing right inguinal hernia redemonstrated. IMPRESSION: No renal stones or hydronephrosis is seen bilaterally. No significant new or acute findin gs seen to account for patient's symptoms of right flank and lower quadrant pain.
== END | disposition home or self-care (01) ==
LOC: RADCTMAIN 14:40
PROVIDERS: ATTEND Urology
DX: R31.1 Benign essential microscopic hematuria (principal); N13.30 Unspecified hydronephrosis
CPT/HCPCS: 74176